=== PATIENT | male | born 1955 | race Caucasian/White ===

== ENCOUNTER → 2021-11-26 07:51 | Outpatient (BNVA) | payer BC, MEDICARE, SELFPAY | PROVIDERS: PCP Internal Medicine; Visit Provider Psychiatry & Neurology Neurology | DX: G20 Parkinson's disease (principal) | CPT/HCPCS: 99202 ==

== ENCOUNTER 2022-05-27 08:02 | Outpatient (REF) | payer BC, SELFPAY ==
--- NOTE | ~2022-05-27 | MR_ITS ---
EXAMINATION: MR BRAIN WITHOUT CONTRAST CLINICAL INFORMATION: Tremor, unspecified. COMPARISON: None available. TECHNIQUE: Multiplanar, multisequence imaging of the brain was performed without intravenous contrast. FINDINGS: There is no acute infarction, hemorrhage, mass, or extra-axial fluid collection. A few minimal nonspecific foci of T2/FLAIR hyperintensity are seen within the cerebral white matter. The ventricles are normal in size without hydrocephalus. There is a small chronic lacunar infarct within left inferior cerebellum. The major arterial flow voids are preserved at the skull base. There is mild nasal sinus mucosal thickening in maxillary sinus mucosal retention cyst. The orbits are unremarkable. Degenerative changes are seen in the cervical spine with severe disc height loss and grade 1 retrolisthesis noted at C3-C4. MR/MR head/brain wo con IMPRESSION: No acute infarct, mass lesion, intracranial hemorrhage, or evidence of hydrocephalus. Chronic lacunar infarct in the left inferior cerebellum. Background changes of mild chronic microangiopathy.
== END 2022-05-27 08:03 | disposition home or self-care (01) ==
LOC: HO.MRI 08:02
PROVIDERS: Visit Provider Nurse Practitioner Family
DX: G20 Parkinson's disease (principal)
CPT/HCPCS: 70551

== ENCOUNTER → 2022-10-20 09:19 | Outpatient (BNVA) | payer BC, SELFPAY | PROVIDERS: PCP Internal Medicine; Visit Provider Nurse Practitioner Family | DX: Z13.89 Encounter for screening for other disorder (principal) ==

== ENCOUNTER 2023-04-13 09:25 | Outpatient (AMB) | payer BC, SELFPAY ==
--- NOTE | 2023-04-13 09:33 | MHC.OFFVIS ---
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 Pt reports that his right hand tremor has slightly improved, but it can be bad sometimes. He is on resagiline 1 mg daily, and sinemet 1 tab BID. Denies difficulty using his hand. He finished PT and OT, and it was helpful for hands strength and gait training. He does exercise and stretching regularly. He reports occasional hallucinations, black shadow. Denies light headedness. Managed constipation with Colace PRN. PFS Medical History Dupuytren contracture Hyperlipidemia Hypertension Surgical History H/O hernia repair H/O knee surgery Family History Father Melanoma Mother Alzheimer disease Brother Pancreatic cancer Social History (Updated 04/13/23 @ 09:35 by Hannah Xiong CMA) Alcohol intake: current Patient Tobacco Use Status: Former Tobacco user Review of Systems Const All systems reviewed & are unremarkable except as noted in HPI and below Physical Exam Vital Signs: Last Vital Signs Pulse 70 04/13/23 09:35 BP 112/60 04/13/23 09:35 Pulse Ox 96 04/13/23 09:35 Oxygen Delivery Method Room Air 04/13/23 09:35 Const General: cooperative and no acute distress Nutritional Appearance: average body habitus Orientation/consciousness: patient oriented x3 HEENT Head: Yes normocephalic Neck Neck: Yes full ROM Resp Effort & Inspection: normal respiratory effort and able to speak in complete sentences Neuro General: patient oriented x3 and deep tendon reflexes 2+ bilaterally Cranial nerves: Yes CN's II-XII intact bilaterally Gait exam (Neuro): Other gait observations present (Decreased bialteral arm swing, good stride and steps. ) Motor exam (neuro): 5/5 motor strength present throughout, Pronator motor function not present, Tremors during motor activity present (Right hand resting tremor) and Other motor observations present (increased tone on right upper extremity +2) Coordination: inzujp-gd-waxw test normal Psych Appearance: grossly normal Mental Status: mental status grossly normal Assessment & Plan Assessment & Plan (1) Parkinsons disease: Code(s): G20 - Parkinson's disease (2) Tremor: Code(s): R25.1 - Tremor, unspecified Plan Advised patient to continue to take carbidopa-levodopa 25-100 mg, 1 tab twice a day. Continue to take Rasagiline 1mg daily. Advised patient to home PT and OT for bilateral upper and lower extremities' strength. Encouraged patient to increase PO fluid to prevent constipation and light headedness. Coding Level of Care Code Est Pt Level 3 (14295) Diagnoses Parkinsons disease G20 Tremor R25.1
[2023-04-13 09:35] VITALS: BP 112/60; PULSE 70; O2SAT 96
== END 2023-04-13 10:05 | disposition home or self-care (01) ==
PROVIDERS: Visit Provider Nurse Practitioner Family
DX: G20 Parkinson's disease (principal)
CPT/HCPCS: 99213

== ENCOUNTER → 2023-04-13 09:25 | Outpatient (BNVA) | payer BC, SELFPAY | PROVIDERS: Visit Provider Nurse Practitioner Family ==

== ENCOUNTER 2024-06-20 08:52 | Outpatient (AMB) | payer BC, SELFPAY ==
--- NOTE | 2024-06-20 08:54 | MHC.OFFVIS ---
Vital Signs 06/20/24 08:57 Height 6 ft Weight 210 lb BMI 28.5 BP 118/82 Blood Pressure Location Rt brachial Position Sitting Intake Visit Reasons: 1yr follow up Intake Note: Patient presents for 1 year follow up. Allergies No Known Allergies Allergy (Verified 06/20/24 09:00) Medication List - Last Reconciled 06/20/24 by Jana Rangel MD allopurinol 300 mg PO DAILY amlodipine 10 mg PO DAILY carbidopa-levodopa 25-100 mg 1 tab PO TID 90 days gemfibrozil 600 mg PO BID rasagiline 1 mg PO DAILY 90 days HPI Comments Details: 68 y/o right handed male patient presents for follow up of Parkinson's. Pt reports that his right hand tremor has slightly worsened. He also noticed increase in jaw tremors He is on rasagiline 1 mg daily, and sinemet 1 tab BID. Denies difficulty using his hand. Memory- mild difficulty with short term recall Sleep- dream enactment sometimes, vivid dreams speech- softer, night time drooling Mood-stable Motivated Handwriting-smaller Using utensils- good shower-ok dressing- slower Turning in bed- ok Gait-right foot drags .1 fall- when he was carrying stuff up the stairs. Occasionally see shadows in bedroom He does exercise and stretching regularly. He reports occasional hallucinations, black shadow. Denies light headedness. Managed constipation with Colace PRN. [facility] Medical History Hyperlipidemia Hypertension Dupuytren contracture Surgical History H/O hernia repair H/O knee surgery Family History Father Melanoma Mother Alzheimer disease Brother Pancreatic cancer Social History Alcohol intake: current Patient Tobacco Use Status: Former Tobacco user Physical Exam Vital Signs: Last Vital Signs BP 118/82 06/20/24 08:57 BMI result Body Mass Index 28.5 Const General: cooperative and no acute distress Nutritional Appearance: average body habitus Orientation/consciousness: patient oriented x3 HEENT Head: Yes normocephalic Neck Neck: Yes full ROM Resp Effort & Inspection: normal respiratory effort and able to speak in complete sentences Neuro Other: Trav dupytrens contracture Mild decreased facial expression , blink right UE tremors -rest Gait mild stoop no arm swing right General: patient oriented x3 and deep tendon reflexes 2+ bilaterally Cranial nerves: Yes CN's II-XII intact bilaterally Gait exam (Neuro): Other gait observations present (Decreased bialteral arm swing, good stride and steps. ) Motor exam (neuro): 5/5 motor strength present throughout, Pronator motor function not present, Tremors during motor activity present (Right hand resting tremor) and Other motor observations present (increased tone on right upper extremity +2) Coordination: qwqqqu-zv-azuz test normal Psych Appearance: grossly normal Mental Status: mental status grossly normal Assessment & Plan Assessment & Plan (1) Parkinsons disease: Code(s): G20 - Parkinson's disease Category: Medical Qualifiers: Dyskinesia presence: without dyskinesia Fluctuating manifestations: without fluctuating manifestations Qualified Code(s): G20.A1 - Parkinson's disease without dyskinesia, without mention of fluctuations Plan Increase carbidopa-levodopa 25-100 mg, 1 tab tid. Continue to take Rasagiline 1mg daily. will refer to PT for strenthening and gait training Encouraged patient to increase PO fluid to prevent constipation and light headedness. Orders: Orders PT Evaluation and Treatment Today G20 - Parkinson's disease Medications: Changed From carbidopa-levodopa 25-100 mg 1 tab PO BID 90 days 180 tabs 1RF To carbidopa-levodopa 25-100 mg 1 tab PO TID 90 days 270 tabs 1RF Coding Level of Care Code Est Pt Level 4 (81938) Complex EM visit Add On G2211 Diagnoses Parkinson's disease without dyskinesia or fluctuating manifestations G20.A1 Dyskinesia presence: without dyskinesia Fluctuating manifestations: without fluctuating manifestations
[2024-06-20 08:57] VITALS: BP 118/82; BMI 28.5
== END 2024-06-20 09:29 | disposition home or self-care (01) ==
PROVIDERS: PCP Internal Medicine; Visit Provider Psychiatry & Neurology Neurology
DX: G20.A1 Parkinson's disease without dyskinesia, without mention of fluctuations (principal)
CPT/HCPCS: 99214

== ENCOUNTER → 2024-06-20 08:52 | Outpatient (BNVA) | payer BC, SELFPAY | PROVIDERS: PCP Internal Medicine; Visit Provider Psychiatry & Neurology Neurology ==

== ENCOUNTER 2025-01-16 07:49 | Outpatient (AMB) | payer BC, SELFPAY ==
--- NOTE | 2025-01-16 07:52 | A.OFFVIS_ITS ---
Vital Signs 01/16/25 07:53 Height 6 ft Weight 208 lb 6 oz BMI 28.3 BP 108/70 Blood Pressure Location Lt brachial Position Sitting Pulse 69 Pulse Source Pulse Oximeter Pulse Oximetry (%) 98 Oxygen Delivery Method Room Air Intake Visit Reasons: 6m follow up Intake Note: Patient presents for follow up. patient did not do PT. he states he's done in the past he did his own stretches at home. Allergies No Known Allergies Allergy (Verified 01/16/25 07:56) HPI Comments Details: 69 y/o right handed male patient presents for follow up of Parkinson's. Pt reports that his parkinsons symptoms are stable. Tremors decreased with dose increase He is on rasagiline 1 mg daily, and sinemet 1 tab TID. Denies difficulty using his hand. Memory- mild difficulty with short term recall Sleep- dream enactment sometimes, vivid dreams speech- softer, night time drooling Mood-stable Motivated Handwriting-smaller Using utensils- good shower-ok dressing- slower Turning in bed- ok Gait-his says he slouches, otherwise good Occasionally see shadows in bedroom He does exercise and stretching regularly. He reports occasional hallucinations, black shadow.- rare Denies light headedness. Managed constipation with Colace PRN. [facility] Medical History Hyperlipidemia Hypertension Dupuytren contracture Surgical History H/O hernia repair H/O knee surgery Family History Father Melanoma Mother Alzheimer disease Brother Pancreatic cancer Social History Alcohol intake: current Patient Tobacco Use Status: Former Tobacco user Physical Exam Vital Signs: Last Vital Signs Pulse 69 01/16/25 07:53 BP 108/70 01/16/25 07:53 Pulse Ox 98 01/16/25 07:53 Oxygen Delivery Method Room Air 01/16/25 07:53 BMI result Body Mass Index 28.3 Const General: cooperative and no acute distress Nutritional Appearance: average body habitus Orientation/consciousness: patient oriented x3 HEENT Head: Yes normocephalic Neck Neck: Yes full ROM Resp Effort & Inspection: normal respiratory effort and able to speak in complete sentences Neuro Other: Trav dupytrens contracture Mild decreased facial expression , blink right UE tremors -rest , intermittent, mild Gait mild stoop no arm swing right General: patient oriented x3 and deep tendon reflexes 2+ bilaterally Cranial nerves: Yes CN's II-XII intact bilaterally Gait exam (Neuro): Other gait observations present (Decreased bialteral arm swing, good stride and steps. ) Motor exam (neuro): 5/5 motor strength present throughout, Pronator motor function not present, Tremors during motor activity present (Right hand resting tremor) and Other motor observations present (increased tone on right upper extremity +2) Coordination: [id number]-gk-enpb test normal Psych Appearance: grossly normal Mental Status: mental status grossly normal Assessment & Plan Assessment & Plan (1) Parkinsons disease: Code(s): G20 - Parkinson's disease Category: Medical Qualifiers: Dyskinesia presence: without dyskinesia Fluctuating manifestations: without fluctuating manifestations Qualified Code(s): G20.A1 - Parkinson's disease without dyskinesia, without mention of fluctuations Plan Continue carbidopa-levodopa 25-100 mg, 1 tab tid. Continue to take Rasagiline 1mg daily. Continue exercise. Encouraged patient to increase PO fluid to prevent constipation and light headedness. Coding Level of Care Code Est Pt Level 4 (13699) Complex EM visit Add On G2211 Diagnoses Parkinson's disease without dyskinesia or fluctuating manifestations G20.A1 Dyskinesia presence: without dyskinesia Fluctuating manifestations: without fluctuating manifestations
[2025-01-16 07:53] VITALS: BP 108/70; PULSE 69; O2SAT 98; BMI 28.3
== END 2025-01-16 08:34 | disposition home or self-care (01) ==
LOC: HO.HSMS 07:50
PROVIDERS: PCP Internal Medicine; Visit Provider Psychiatry & Neurology Neurology
DX: G20.A1 Parkinson's disease without dyskinesia, without mention of fluctuations (principal)
CPT/HCPCS: 99214

== ENCOUNTER 2025-07-22 08:50 | Outpatient (AMB) | payer BC, SELFPAY ==
--- NOTE | 2025-07-22 08:53 | MHC.OFFVIS ---
Vital Signs 07/22/25 08:54 Height 6 ft Weight 204 lb 2 oz BMI 27.7 BP 110/70 Blood Pressure Location Rt brachial Position Sitting Intake Visit Reasons: 6 mo follow up Intake Note: Follow up Parkinson's disease [employer] Chair Required: No Accompanied by: Self / Same As Patient Allergies No Known Allergies Allergy (Verified 07/22/25 08:54) Medication List - Last Reconciled 07/22/25 by Jana Rangel MD allopurinol 300 mg PO DAILY amlodipine 10 mg PO DAILY carbidopa-levodopa 25-100 mg 1 tab PO TID gemfibrozil 600 mg PO BID rasagiline 1 mg PO DAILY 90 days HPI Comments Details: 69 y/o right handed male patient presents for follow up of Parkinson's. He is noticing tremors in left side now . His symptoms are mostly on his Right side. He has some difficulty going up and down bleachers as there is no handle . he also noticed mild word retrieval issues He is on rasagiline 1 mg daily, and sinemet 1 tab TID. Denies difficulty using his hand. Memory- mild difficulty with short term recall Sleep- dream enactment sometimes, vivid dreams speech- softer, night time drooling Mood-stable Motivated Handwriting-smaller Using utensils- good shower-ok dressing- slower Turning in bed- ok Gait-his says he slouches, otherwise good Occasionally see shadows in bedroom He does exercise and stretching regularly. He reports occasional hallucinations, black shadow.- rare Denies light headedness. Managed constipation with Colace PRN. [facility] Medical History Hyperlipidemia Hypertension Dupuytren contracture Surgical History H/O hernia repair H/O knee surgery Family History Father Melanoma Mother Alzheimer disease Brother Pancreatic cancer Social History Alcohol intake: current Patient Tobacco Use Status: Former Tobacco user Physical Exam Vital Signs: Last Vital Signs BP 110/70 07/22/25 08:54 BMI result Body Mass Index 27.7 Const General: cooperative and no acute distress Nutritional Appearance: average body habitus Orientation/consciousness: patient oriented x3 HEENT Head: Yes normocephalic Neck Neck: Yes full ROM Resp Effort & Inspection: normal respiratory effort and able to speak in complete sentences Neuro Other: Trav dupytrens contracture Mild decreased facial expression , blink right UE tremors -rest , intermittent, mild Gait mild stoop no arm swing right General: patient oriented x3 and deep tendon reflexes 2+ bilaterally Cranial nerves: Yes CN's II-XII intact bilaterally Gait exam (Neuro): Other gait observations present (Decreased bialteral arm swing, good stride and steps. ) Motor exam (neuro): 5/5 motor strength present throughout, Pronator motor function not present, Tremors during motor activity present (Right hand resting tremor) and Other motor observations present (increased tone on right upper extremity +2) Coordination: pjiult-tg-hend test normal Psych Appearance: grossly normal Mental Status: mental status grossly normal Assessment & Plan Assessment & Plan (1) Parkinsons disease: Code(s): G20 - Parkinson's disease Category: Medical Plan Continue carbidopa-levodopa 25-100 mg, 1 tab tid. Continue to take Rasagiline 1mg daily. Continue exercise. Encouraged patient to increase PO fluid to prevent constipation and light headedness. Coding Level of Care Code Est Pt Level 4 (26314) Complex EM visit Add On G2211 Diagnoses Parkinsons disease G20
[2025-07-22 08:54] VITALS: BP 110/70; BMI 27.7
== END 2025-07-22 11:19 | disposition home or self-care (01) ==
LOC: HO.HSMS 08:51
PROVIDERS: PCP Internal Medicine; Visit Provider Psychiatry & Neurology Neurology
DX: G20.C Parkinsonism, unspecified (principal)
CPT/HCPCS: 99214